=== PATIENT | female | born 1950 | race Caucasian/White ===

== ENCOUNTER 2024-03-01 15:15 | Inpatient (IN) | payer MEDICARE, SELFPAY ==
[2024-03-01 15:46] VITALS: BP 140/63; PULSE 98; RESP 16; TEMP 36.2; O2SAT 95; BMI 30.3
[2024-03-01] MEDS: Pravastatin 40 MG Tablet PO (21:03)
[2024-03-01] MEDS: Aspirin E.C. 81 MG Tablet PO (21:03)
--- NOTE | 2024-03-01 21:51 | HP.PCM_ITS ---
HPI - General General Date of Admission: 03/01/24 Date of Service: 03/01/24 Chief Complaint: Here for rehabilitation. HPI Narrative AIXA GANN, is a 73 Female who presents with followin02/24/2024 Admit to [facility]. Visiting from [place], [place]. Tripped, fell, ground level fall. Fell on right side, no head injury, no loss of consciousness. X-ray showed right hip fracture, right wrist fracture. 02/25/2024 IV fluid hydration for mild acute kidney injury. Pain control, DVT prophylaxis. 02/25/2024 Dr. Enrique Tidwell consulted. 02/25/2024 Dr. Enrique Tidwell performed internal fixation right hip fracture. 02/25/2024 Dr. Enrique Tidwell performed closed reduction right wrist fracture with application of cast. 02/29/2024 Pain improved, hemoglobin 7.8, on iron. D/C hernandez catheter. 03/01/2024 Admit to TCU with debility, here for rehabilitation, strengthening, prior to discharge home. [facility] Medical History (Updated 03/01/24 @ 21:[address] Alberto Landry MD) Hyperlipidemia Acute kidney injury Right wrist fracture Closed right hip fracture Fall Debility Home Medications ?Medication ?Instructions ?Recorded ?Last Taken ?Type acetaminophen 325 mg capsule 650 mg PO Q4H PRN pain (scale 03/01/24 Unknown History score 1-3) aspirin 81 mg tablet,delayed 81 mg PO BID Blood thinner 03/01/24 Unknown History release cyanocobalamin (vitamin B-12) 500 500 mcg PO DAILY Supplement 03/01/24 Unknown History mcg tablet (Vitamin B-12) docusate sodium 100 mg capsule 100 mg PO BID PRN Constipation 03/01/24 Unknown History (Col-Rite) multivitamin (Daily Multi-Vitamin 1 tab PO DAILY Supplement 03/01/24 Unknown History tablet) polysaccharide iron complex 150 mg 150 mg PO DAILY Supplement 03/01/24 Unknown History iron capsule (Ferrex) pravastatin 40 mg tablet 40 mg PO QHS Cholesterol 03/01/24 Unknown History tramadol 50 mg tablet 50 mg PO Q6H Pain 4-10 03/01/24 Unknown History vitamins A,C,K-nuds-ttfuom 2,148 1 tab PO BID Supplement 03/01/24 Unknown History mcg-113 mg-45 mg-17.4 mg tablet (Eye Multivitamin) Allergy/AdvReac Type Severity Reaction Status Date / Time Sulfa (Sulfonamide Allergy Unknown Unknown Verified 03/01/24 16:52 Antibiotics) (sulfa drugs) Surgical History (Updated 03/01/24 @ 21:[address] Alberto Landry MD) History of repair of left hip joint Social History (Updated 03/01/24 @ 21:[address] Alberto Landry MD) household members: spouse and other details: Lives in [place], [place]. Smoking Status: Never smoker alcohol intake: never substance use type: does not use ROS Constitutional Constitutional: Denies chills, fever(s) or weight gain ENT HEENT: Denies headache(s), nasal congestion or nasal discharge Cardiovascular Cardiovascular: Denies chest pain or palpitations Respiratory/Chest Respiratory/Chest: Denies cough, excessive phlegm production or shortness of breath with exertion Gastrointestinal Gastrointestinal: Denies abdominal pain, nausea or vomiting Genitourinary Genitourinary: Denies dysuria Musculoskeletal Musculoskeletal: Denies joint pain or joint swelling Integumentary Integumentary: Denies rash or wounds Neurologic Neurologic: Denies focal weakness, numbness or tingling Psychiatric Psychiatric: Denies anxiety, auditory hallucinations, depression, homicidal ideation or suicidal ideation Vital Signs Vital Signs Vital Signs: 03/01/24 15:46 03/01/24 15:46 Temperature 97.1 F L Temperature Source Temporal Pulse Rate 98 Pulse Rhythm Regular Pulse Strength Normal (2+) Respiratory Rate 16 16 Respiratory Effort Normal Non-Labored Respiratory Depth Normal Respiratory Pattern Normal Blood Pressure 140/63 H Blood Pressure Mean 88 Blood Pressure Source Monitor Pulse Ox 95 95 Oxygen Delivery Method Room Air Room Air Weight Weight: 95.98 kg Body Mass Index (BMI) 30.3 Physical Exam Const alert General Appearance: cooperative HEENT normocephalic Eyes PERRL and EOMs intact bilaterally Neck supple, no JVD and no carotid bruits Resp normal respiratory effort, normal air movement and clear to auscultation bilaterally Cardio regular rate and regular rhythm GI normal to inspection, nondistended, normoactive bowel sounds, non-tender and non-distended Extremity normal capillary refill Extremity Narrative: Right SAC, right upper extremity sling. General Extremity: Negative for edema Skin no rashes or lesions noted General Skin Exam: no breakdown Psych affect normal Appearance: appropriate Assessment & Plan Assessment/Plan (1) Debility: (2) Fall: (3) Closed right hip fracture: (4) Right wrist fracture: (5) Acute kidney injury: (6) Hyperlipidemia: PLAN: Plan 73 year old female with below past medical history hospitalized for right hip fracture, right wrist fracture, underwent internal fixation right hip fracture, closed reduction right wrist fracture 02/25/[address] Enrique Tidwell, admitted to TCU with debility, here for rehabilitation, strengthening, prior to discharge home to [place]. Resident in [place], her sister is in [place]. * Debility - PT/OT. * Pain - Tylenol 1000mg q6 prn pain (1-3), Tramadol 50mg q6 prn pain (4-10). * Bowel - senna/colace 1 tablet bid, Magnesium citrate 300ml po daily prn. * Adult immunization - Administer pneumonia vaccine, covid vaccine, flu vaccine as appropriate. * DVT prophylaxis - Aspirin 81mg bid thru 03/31/2024. * Right hip fracture s/p internal fixation - f/u Dr. Enrique Tidwell. * Right wrist fracture s/p closed reduction with cast - f/u Dr. Enrique Tidwell. * Calcium deficiency - Calcium carbonate 500mg bidcm. * Vitamin B12 deficiency - B12 500mcg daily. * Iron deficiency anemia - Ferrex 150mg daily, monitor. * Macular degeneration - Healthy Eyes 1 cap daily. * Nutrition - MVI 1 tablet daily. * Hyperlipidemia - Pravastatin 40mg qhs.
[2024-03-01] MEDS: traMADol 50 MG Tablet PO (22:40)
[2024-03-02 06:22] LABS: Absolute Lymphocyte Count 0.91 X10^3/uL (0.83-4.51); Absolute Neutrophil Count 2.5 X10^3/uL (2.0-7.7); Basophil# 0.02 X10^3/uL; Basophil% 0.5 % (0-1); Eosinophil# 0.39 X10^3/uL; Eosinophils% 8.9 % (0-5); Hematocrit 22.9 % (37-47); Hemoglobin 7.3 g/dL (12.0-15.0); Lymphocyte # 0.91 X10^3/ul (0.83-4.51); Lymphocyte % 20.8 % (19-41); Mean Corp Hgb Conc 31.9 g/dL (32-36); Mean Corpuscular Hgb 32.4 pg (27.0-32.0); Mean Corpuscular Volume 101.8 fL (81-99); Mean Platelet Vol. 9.5 fl (6.2-12.0); Monocyte# 0.54 X10^3/uL; Monocyte% 12.4 % (0-10); NRBC Flagged by Analyzer 0 % (0-5); Neutrophil % 57.2 % (47-70); Platelet Count 186 K/mm3 (150-450); RBC Distribution Width CV 13.1 % (11.6-14.6); Red Blood Count 2.25 M/mm3 (4.2-5.4); White Blood Count 4.4 K/mm3 (4.4-11.0)
[2024-03-02 07:01] LABS: Anion Gap 4 (5-15); BUN 15 mg/dL (7-18); BUN/Creat Ratio 19.6 RATIO (10-20); Calcium,Total 8.6 mg/dL (8.5-10.1); Chloride 106 mmol/L (98-107); Creatinine, Serum 0.76 mg/dL (0.55-1.02); EST Glomerular Filtration Rate 78 mL/min (>60); Est Glom Filt Rate - Afr Amer 95 mL/min (>60); Estimated Creatinine Clearance 76.25 ml/min; Glucose 100 mg/dL (74-106); Potassium 3.8 mmol/L (3.5-5.1); Sodium Level 139 mmol/L (136-145)
[2024-03-02] MEDS: Multivitamins,Therapeutic Tablet 1 TABLET PO (08:19)
[2024-03-02] MEDS: Aspirin E.C. 81 MG Tablet PO ×2 (08:19→20:05)
[2024-03-02] MEDS: Iron Polysaccharide Complex 150 MG CAPSULE PO (08:19)
[2024-03-02] MEDS: Multivitamin (Healthy Eyes) Capsule 1 CAP PO (08:19)
[2024-03-02] MEDS: Cyanocobalamin 500 MCG Tablet PO (08:20)
[2024-03-02] MEDS: Calcium Carbonate 500 MG Tablet PO ×2 (08:22→17:22)
[2024-03-02] MEDS: Senna/Docusate Sodium 1 Tablet PO ×2 (08:22→20:04)
[2024-03-02] MEDS: traMADol 50 MG Tablet PO ×3 (08:24→21:41)
[2024-03-02 08:29] VITALS: BP 123/50; PULSE 95; O2SAT 99
--- NOTE | 2024-03-02 08:39 | NURSING ---
Called infusion center, spoke with Yeimy, they will schedule resident for tomorrow (03/03/24), at 0730. Updated resident, she said she will update her family.
--- NOTE | 2024-03-02 11:21 | NURSING ---
Addendum entered by Kusum Johnson 03/02/24 12:19: Left VM with Dr. Tidwell's office that xrays done and report in. Original Note: Updated by therapy that cast was coming off of right wrist. Called and updated Rosalie at Dr. Tidwell's. Call back around 1115 with orders to do a stat wrist xray and call with results. Updated patient.
[2024-03-02] MEDS: Tuberculin,Purif.prot.deriv. 50 TU/ML Vial 0.1 ML ID (11:23)
--- NOTE | 2024-03-02 11:40 | RAD_ITS ---
STUDY: X-RAY - RIGHT WRIST REASON FOR EXAM: Female, 73 years old. History of radial fracture. TECHNIQUE: 3 view(s) of the wrist were obtained in a cast. COMPARISON: None. FINDINGS: Comminuted fracture of the distal radial metaphysis with extension to the articular surface. There is a 3 mm step of the articular surface of the radius. Avulsion fracture of the ulnar styloid. Normal radiocarpal articulation. Normal distal radioulnar articulation. Normal carpal bones. Normal carpal articulations. Normal carpometacarpal articulation of the thumb. Normal second through fifth carpometacarpal articulations. Normal visualized metacarpal bones. Soft tissue swelling. RAD/Wrist min 3 Views IMPRESSION: Comminuted fracture of the distal radial metaphysis with extension to the articular surface with a 3 mm step. Avulsion fracture of the ulnar styloid. Diffuse soft tissue swelling. Electronically Signed: Major Hutton MD at 12:13 EDT ,
[2024-03-02 14:54] VITALS: BP 128/56; PULSE 94; RESP 16; TEMP 36.5; O2SAT 95
--- NOTE | 2024-03-02 16:03 | NURSING ---
Addendum entered by Paulo Hope 03/02/24 18:17: PT STATED SHE WOULD UPDATE FAMILY ON EVERY THING. Original Note: ISAK FROM [facility] IN TO SEE PT. ISAK PLACED A SPLIT WITH MICAH WRAP TO RT WRIST. NWB TO WRIST,OK TO PUT WEIGHT ON ELBOW AND WIGGLE FINGERS. SHE ALSO STATED TO FOLLOW UP IN A WEEK WITH . RN AWARE
--- NOTE | 2024-03-02 16:07 | PHA.CONS_ITS ---
Documented by User: Patience Greene 03/02/24 16:17 TCU RX Drug Regimen Review Subjective/Objective Subjective/Objective: Subjective: TCU Admission. 73 YOF presented to outside hospital following a fall. Hospitalized for right hip fracture, right wrist fracture, underwent in ternal fixation right hip fracture, closed reduction right wrist fracture 02/25/[address] Enrique Tidwell. Admitted to TCU with debility for strengthening and rehabilitation. Objective: Allergies Sulfa (Sulfonamide Antibiotics) (sulfa drugs) Allergy (Unknown, Verified 03/01/24 16:52) Unknown Current Medications Generic Name Dose Route Start Last Admin Trade Name Freq PRN Reason Stop Dose Admin Acetaminophen 1,000 mg 03/01/24 22:06 Acetaminophen 500 Mg Tablet PO Q6H PRN PRN pain (scale score 1-3) Aspirin 81 mg 03/01/24 22:00 03/02/24 08:19 Aspirin E.C. 81 Mg Tablet PO 03/31/24 22:01 81 mg BID AG Administration Calcium Carbonate 500 mg 03/02/24 08:00 03/02/24 08:22 Calcium Carbonate 500 Mg Tablet PO 500 mg BIDCM AG Administration Cyanocobalamin 500 mcg 03/02/24 10:00 03/02/24 08:20 Cyanocobalamin 500 Mcg Tablet PO 500 mcg DAILY AG Administration Magnesium Citrate 300 ml 03/01/24 22:06 Magnesium Citrate 300 Ml PO DAILY PRN CONSTIPATION Multivitamins 1 tablet 03/02/24 08:00 03/02/24 08:19 Multivitamins,Therapeutic Tablet PO 1 tablet DAILYCM AG Administration Multivitamins/Minerals 1 cap 03/02/24 10:00 03/02/24 08:19 Multivitamin (Healthy Eyes) Capsule PO 1 cap DAILY AG Administration Polysaccharide Iron Complex 150 mg 03/02/24 10:00 03/02/24 08:19 Iron Polysaccharide Complex 150 Mg Capsule PO 150 mg DAILY AG Administration Pravastatin Sodium 40 mg 03/01/24 22:00 03/01/24 21:03 Pravastatin 40 Mg Tablet PO 40 mg QHS AG Administration Senna/Docusate Sodium 1 tablet 03/02/24 10:00 03/02/24 08:22 Senna/Docusate Sodium 1 Tablet PO 1 tablet BID AG Administration Sodium Chloride 10 - 40 ml 03/01/24 15:58 0.9% Saline Lock 10 Ml Syringe IV UD PRN SALINE FLUSH Tramadol HCl 50 mg 03/01/24 16:49 03/02/24 15:08 Tramadol 50 Mg Tablet PO 50 mg Q6H PRN Administration Pain Score 4-10 Tuberculin PPD 0.1 ml 03/09/24 10:00 Tuberculin,Purif.Prot.Deriv. 50 Tu/Ml Vial ID 03/09/24 10:01 X1 ONE Problem List Hyperlipidemia (Acute) Acute kidney injury (Acute) Right wrist fracture (Acute) Closed right hip fracture (Acute) Fall (Acute) Debility (Acute) Vital Signs Temp Pulse Resp BP Pulse Ox O2 Del Method 97.7 F L 94 16 128/56 H 95 Room Air 03/02/24 14:54 03/02/24 14:54 03/02/24 14:54 03/02/24 14:54 03/02/24 14:54 03/02/24 14:54 Oxygen Delivery Method Room Air Weight: 95.98 kg Body Mass Index (BMI) 30.3 Sodium 139 mmol/L (136-145) 03/02/24 05:44 Potassium 3.8 mmol/L (3.5-5.1) 03/02/24 05:44 Chloride 106 mmol/L (98-107) 03/02/24 05:44 Carbon Dioxide 29.0 mmol/L (21.0-32.0) 03/02/24 05:44 Anion Gap 4 (5-15) L 03/02/24 05:44 BUN 15 mg/dL (7-18) 03/02/24 05:44 Creatinine 0.76 mg/dL (0.55-1.02) 03/02/24 05:44 Est GFR (MDRD) Af Amer 95 mL/min (>60) 03/02/24 05:44 Est GFR (MDRD) Non-Af 78 mL/min (>60) 03/02/24 05:44 BUN/Creatinine Ratio 19.6 RATIO (10-20) 03/02/24 05:44 Glucose 100 mg/dL (74-106) 03/02/24 05:44 Assessment/Plan: 1. Pain: acetaminophen 1000mg PO Q6H PRN pain 1-3 and tramadol 50mg PO Q6H PRN pain 4-10. Resident has not used and acetaminophen but has used 3 doses of tramadol for pain scores of 4 and 6 in the hip/arm/wrist. Please continue to monitor for increased pain, PRN usage, constipation, respiratory depression and renal function. 2. Bowel: senna/docusate 1T PO BID and magnesium citrate 300mL PO daily PRN constipation. Resident has not used any PRN doses. Please continue to monitor for constipation and PRN usage. No documented bowel movements. 3. DVT prophylaxis: aspirin 81mg PO BID thru 03/31/24. Please continue to monitor for S/S of bleeding, hemoglobin (last 7.3g/dL). 4. Hyperlipidemia: pravastatin 40mg PO QHS. Please consider ordering a lipid panel if clinically appropriate as there is no panel in the chart. Thanks. Please continue to monitor for muscle pain. 5. Iron deficiency anemia: Ferrex 150mg PO daily. Please continue to monitor hemoglobin, dark stools and constipation. 6. Calcium/vitamin B12 deficiency: calcium carbonate 500mg PO BIDCM and cyanocobalamin 500mcg PO daily. Please continue to monitor calcium (last 8.6mg/dL). 7. Nutrition/macular degeneration: multivitamin 1T PO daily and healthy eyes 1C PO daily. Please continue to monitor. Assessment/Plan for indications treated with psychotropic medications: None Medical chart and medication regimen reviewed. The following medication irregularities or issues were identified: 1. Pravastatin 40mg PO QHS. Please consider ordering a lipid panel if clinically appropriate as there is no panel in the chart. Thanks. Date Date of Note:: 03/02/24 Documented by User: Dr. Alberto Landry MD 03/02/24 16:56 TCU RX Drug Regimen Review Provider Comments Provider responsibility Provider Comments to Recommendations by Pharmacy: Agree
--- NOTE | 2024-03-02 16:56 | CASEMGMT ---
Social Work Patient is out of state and cannot provide copies of advanced directives. Aura Storey, MOVING PICTURE PRODUCER AUTOMATIC VULCANIZING LEAD OPERATOR
[2024-03-02 20:00] VITALS: PULSE 96; RESP 18; O2SAT 99
[2024-03-02] MEDS: Pravastatin 40 MG Tablet PO (20:05)
[2024-03-03 02:36] LABS: Cholesterol 145 mg/dL (200); High Density Lipoprotein 57 mg/dL; Triglycerides 79 mg/dL; Very Low Density Lipoprotein 16 mg/dL (5-40)
[2024-03-03] MEDS: Calcium Carbonate 500 MG Tablet PO ×2 (06:52→17:35)
[2024-03-03] MEDS: Multivitamins,Therapeutic Tablet 1 TABLET PO (06:52)
--- NOTE | 2024-03-03 07:15 | NURSING ---
Addendum entered by Ishaan Calvin 03/03/24 13:45: Patient returned to unit at 1300. Original Note: Patient left unit at this time for blood transfusion.
--- NOTE | 2024-03-03 08:00 | RAD_ITS ---
INDICATION: f/u fracture -- with splint in place EXAMINATION/TECHNIQUE: X-RAY - RIGHT XR Wrist Min 3 Views 3 VIEWS COMPARISON: Right wrist x-rays 03/02/2024 FINDINGS: BONES: Splint in place. Comminuted fractured distal radius extends to the articular surface, with volar displacement distal fragment by one half bone width. Mild impaction is partially decreased compared to the prior. Fracture of the ulnar styloid process unchanged. JOINTS: No dislocation. SOFT TISSUES: Soft tissue swelling. RAD/Wrist min 3 Views IMPRESSION: Intra-articular distal radius fracture partially improved alignment in cast. Fracture of the ulnar styloid process unchanged. Electronically Signed: Abigail Velarde MD at 5:06 EDT ,
[2024-03-03] MEDS: Iron Polysaccharide Complex 150 MG CAPSULE PO (08:06)
[2024-03-03] MEDS: Senna/Docusate Sodium 1 Tablet PO (08:06)
[2024-03-03] MEDS: Multivitamin (Healthy Eyes) Capsule 1 CAP PO (08:06)
[2024-03-03] MEDS: Aspirin E.C. 81 MG Tablet PO ×2 (08:06→22:03)
[2024-03-03] MEDS: Acetaminophen 500 MG Tablet 1000 MG PO (08:06)
[2024-03-03] MEDS: Cyanocobalamin 500 MCG Tablet PO (08:07)
--- NOTE | 2024-03-03 10:05 | NURSING ---
Underwriting Intern Note; Activity Asset: Igor Garcia is independent in her choice of daily activities. She was her visiting her sister when she fell and is her in [place] and her is in [place]. She has her phone to talk w/family and was given some word puzzle and sudoku to work on. Her plan is to get better as soon as possible so she can make the 3 hour flight back home. She welcomes visits from the business agent and therapy when available. Staff will remind her of weekly activities and respect her right to say no.
--- NOTE | 2024-03-03 10:34 | NURSING ---
Call from [facility] inquiring about xrays that were ordered for 0800. Explained patient over at outpatient infusion center receiving blood transfusion. Per xray, they cannot complete xrays in the outpatient center. Per infusion center, d/t blood being time sensitive patient cannot be transported to xray while receiving blood, however patient was started early this morning patient should be done with transfusion before noon. Per [facility], patient to get xrays CHUCHO when she returns to the unit.
--- NOTE | 2024-03-03 12:29 | NURSING ---
Patient did not receive Lasix 20mg IVP between units while in Transfusion Center. Call placed to Dr. Landry, new order to give Lasix 20mg IVP x1. Verbal order read-back.
[2024-03-03] MEDS: Furosemide 20 MG/2 ML VIAL IV (13:28)
[2024-03-03 13:30] VITALS: BP 140/70; PULSE 83; RESP 16; TEMP 36.8; O2SAT 96
[2024-03-03] MEDS: 0.9% Saline Lock 10 ML Syringe IV (13:30)
--- NOTE | 2024-03-03 15:49 | NURSING ---
Order placed for 24hr post transfusion H&H, 03/04/24 @1400, as ordered by Dr. Landry.
--- NOTE | 2024-03-03 15:59 | CHAPLAIN ---
Type of Pastoral Visit _x__ Initial Visit ___ Follow-up Visit ___ On-call Visit ___ General Patient Visit ___ Spiritual Assessment ___ Family Conference ___ Bereavement ___ Rapid Response ___ Code Blue ___ Other (describe below) Pastoral Care Referral From _x__ Patient ___ Family ___ Nurse ___ Physician ___ [id number] Programmer ___ Cutter Helper ___ Other (describe below) Sacrament/Intervention _x__ Active listening ___ Anointing ___ Adventism ___ Bereavement ___ Communion ___ Sofia exploration ___ _x__ Life review _x__ Prayer ___ Reconciliation ___ Sacrament of Sick _x__ Supportive presence ___ Wedding ___ Other (describe below) Pastoral Comments patient tells her story of being a visitor to [place] from [place] and having a fall that led to this stay in TCU; pt is away from her family and sad about that; pt is tearful as she talks about the separation; pt is affirmed and given time to express her feelings and talk more about her life and interests; pt is hopeful that her sister will be able to visit her tomorrow; pt had a blood transfusion this morning and she is hopeful that will help her energy level too; pt is of the [employer] sofia and requests communion to be given; a call was made to registration to include this patient on the [employer] list for communion; pt request prayer support and states that she is grateful for the visit and attention to her needs and wants
[2024-03-03] MEDS: Pravastatin 40 MG Tablet PO (22:03)
[2024-03-03] MEDS: traMADol 50 MG Tablet PO (22:04)
[2024-03-03 23:00] VITALS: RESP 16
[2024-03-04] MEDS: Calcium Carbonate 500 MG Tablet PO ×2 (09:04→16:57)
[2024-03-04] MEDS: Multivitamins,Therapeutic Tablet 1 TABLET PO (09:04)
[2024-03-04] MEDS: traMADol 50 MG Tablet PO ×3 (09:04→22:01)
[2024-03-04] MEDS: Cyanocobalamin 500 MCG Tablet PO (09:05)
[2024-03-04] MEDS: Iron Polysaccharide Complex 150 MG CAPSULE PO (09:05)
[2024-03-04] MEDS: Aspirin E.C. 81 MG Tablet PO ×2 (09:05→20:05)
[2024-03-04] MEDS: Multivitamin (Healthy Eyes) Capsule 1 CAP PO (09:05)
[2024-03-04 12:38] VITALS: BP 123/51; PULSE 77; RESP 16; TEMP 36.6; O2SAT 98
[2024-03-04 13:41] LABS: Hematocrit 32.7 % (37-47); Hemoglobin 10.4 g/dL (12.0-15.0)
--- NOTE | 2024-03-04 13:44 | CASEMGMT ---
Social Work SW met with patient to complete initial assessment. Introduced self and role. Verified contacts. Pt confirmed code status as full code. SW educated to [facility] insurance with NRD 03/14, EDC 03/17. SW answered pt's questions on assisting returning home to [place]. Pt has f/u appt with ortho on 03/10. Pt plans to [place] the week of the pending that appt. Her sister or will fly with pt and transport to the airport. However, if not, pt inquired about local transportation. SW educated to coordinating [facility] but it is an OOP cost. Pt expressed understanding. Pt is using a right platform FWW and inquired about that at DC. SW to inquire details to [facility] since [place] is out of state. SW educated to PCP coordinating referral to local ortho and HHC or OP therapy and other DME needs. Pt to call PCP office on following business day to notify of situation and begin process for ortho consult. SW will continue to follow for DC planning and support. Aura Storey, RADHA HARRINGTONW
[2024-03-04] MEDS: Hydrocortisone 2.5% Crm 1 APPLIC TOPICAL ×2 (14:44→20:05)
[2024-03-04] MEDS: Pravastatin 40 MG Tablet PO (20:05)
[2024-03-04 22:00] VITALS: PULSE 93; RESP 16; O2SAT 96
[2024-03-05] MEDS: Calcium Carbonate 500 MG Tablet PO ×2 (08:40→17:07)
[2024-03-05] MEDS: Aspirin E.C. 81 MG Tablet PO ×2 (08:42→22:02)
[2024-03-05] MEDS: Multivitamins,Therapeutic Tablet 1 TABLET PO ×2 (08:42→08:44)
[2024-03-05] MEDS: Iron Polysaccharide Complex 150 MG CAPSULE PO (08:42)
[2024-03-05] MEDS: Multivitamin (Healthy Eyes) Capsule 1 CAP PO (08:42)
[2024-03-05] MEDS: Cyanocobalamin 500 MCG Tablet PO (08:43)
[2024-03-05 08:48] VITALS: BP 116/50; PULSE 93; O2SAT 96
[2024-03-05] MEDS: Hydrocortisone 2.5% Crm 1 APPLIC TOPICAL ×2 (11:04→22:02)
[2024-03-05 11:05] VITALS: PULSE 69; RESP 18; O2SAT 97
[2024-03-05] MEDS: traMADol 50 MG Tablet PO (12:54)
[2024-03-05 16:00] VITALS: BP 135/63; PULSE 78; RESP 14; TEMP 36.4; O2SAT 100
[2024-03-05] MEDS: Pravastatin 40 MG Tablet PO (22:02)
[2024-03-06] MEDS: Hydrocortisone 2.5% Crm 1 APPLIC TOPICAL (08:37)
[2024-03-06] MEDS: Calcium Carbonate 500 MG Tablet PO ×2 (08:38→16:47)
[2024-03-06] MEDS: Aspirin E.C. 81 MG Tablet PO ×2 (08:39→22:20)
[2024-03-06] MEDS: Iron Polysaccharide Complex 150 MG CAPSULE PO (08:39)
[2024-03-06] MEDS: Cyanocobalamin 500 MCG Tablet PO (08:40)
[2024-03-06] MEDS: Multivitamin (Healthy Eyes) Capsule 1 CAP PO (08:40)
[2024-03-06] MEDS: Acetaminophen 500 MG Tablet 1000 MG PO ×2 (08:42→22:24)
[2024-03-06 08:47] VITALS: BP 116/47; PULSE 92; O2SAT 99
[2024-03-06 13:30] VITALS: PULSE 77; RESP 18; O2SAT 98
[2024-03-06 16:00] VITALS: BP 143/50; PULSE 85; RESP 16; TEMP 36.6; O2SAT 99
[2024-03-06] MEDS: Pravastatin 40 MG Tablet PO (22:20)
[2024-03-07] MEDS: traMADol 50 MG Tablet PO (09:21)
[2024-03-07] MEDS: Multivitamins,Therapeutic Tablet 1 TABLET PO (09:22)
[2024-03-07] MEDS: Calcium Carbonate 500 MG Tablet PO ×2 (09:23→17:07)
[2024-03-07] MEDS: Cyanocobalamin 500 MCG Tablet PO (09:23)
[2024-03-07] MEDS: Iron Polysaccharide Complex 150 MG CAPSULE PO (09:23)
[2024-03-07] MEDS: Multivitamin (Healthy Eyes) Capsule 1 CAP PO (09:23)
[2024-03-07] MEDS: Aspirin E.C. 81 MG Tablet PO ×2 (09:23→20:53)
[2024-03-07] MEDS: Hydrocortisone 2.5% Crm 1 APPLIC TOPICAL ×2 (09:25→17:07)
[2024-03-07 13:51] VITALS: BP 158/61; PULSE 77; RESP 18; TEMP 36.1; O2SAT 98
--- NOTE | 2024-03-07 15:12 | PCM.PN.ORT ---
Subjective Subjective Patient is status post right hip intramedullary nailing approximately 10 days ago. Also underwent closed reduction of her wrist fracture. She states she is having no significant wrist or hand pain. Mild swelling. She has been having mild hip pain after therapy. She is planning on returning home in about 10 days. She lives out of state. Denies numbness or tingling of the fingers. Objective Data Objective Data Right upper extremity is in a AP splint short arm. She had no significant pain at the shoulder elbow. She can gently wiggle the fingers. Capillary refill is normal. Sensation is normal. Hand is neurovascular intact. She has mild hip flexion pain at 90 degrees. Mild hip pain with rotation. No pain with gentle axial loading the hip. No calf pain or swelling. Negative Homans' sign. Legs are neurovascular intact. X-rays of the right wrist from March 02 and March 03 reviewed showing a displaced comminuted impacted intra-articular distal radius fracture with associated ulnar styloid fracture. Images explained to patient. Vital Signs: Vital Signs Temp Pulse Resp BP Pulse Ox O2 Del Method 97.0 F L 77 18 158/61 H 98 Room Air 03/07/24 13:51 03/07/24 13:51 03/07/24 13:51 03/07/24 13:51 03/07/24 13:51 03/07/24 13:51 Oxygen Delivery Method Room Air Weight: 95.98 kg Body Mass Index (BMI) 30.3 Intake & Output: Intake and Output for Last 24 Hours 03/05/24 03/06/24 03/07/24 23:59 23:59 23:59 Intake Total 460 / 460 440 / 440 240 / 240 Balance 460 / 460 440 / 440 240 / 240 Lab / Micro Data 03/04/24 13:32 03/02/24 05:44 Assessment & Plan Assessment/Plan (1) History of repair of left hip joint: PLAN: Plan Her diagnosis and treatment options regarding her right distal radius fracture and right hip fracture discussed with her at length. She is to be weightbearing as tolerated on the right hip. She should avoid weightbearing across her right wrist. Surgical and nonsurgical options for the wrist again discussed at length. I explained based on her age and activity level, despite her fracture being impacted and somewhat out of alignment, I do not think that surgical intervention would give her a significant increased outcome as far as pain relief or use compared to allowing it to heal in this position. I explained that would require another anesthetic for open reduction internal fixation. I do not think further closed reduction and immobilization would give her a better chance of the fracture healing in a significantly better position. She has already been through 2 anesthetics for this injury. She would like to avoid surgery if possible. I explained her orthopedic surgeon at home may further discuss surgical intervention especially if she were to develop a painful nonunion or malunion. We will plan to have repeat set of x-rays this of the wrist and hip. I will review those from my office. She can get the sindhu taken out of her hip surgery site this . We can see her in the office if needed. Otherwise she will be discharged to home possibly as scheduled on April 16 per report.
--- NOTE | 2024-03-07 17:22 | NURSING ---
Dr. Tidwell in to see patient today. Progress note states she does not need to be seen in the office on 03/10 if we can remove sindhu and get x-rays. Call Dr. Tidwell office to get orders for x-rays. Order placed to remove sindhu on 03/10.
--- NOTE | 2024-03-07 18:36 | NURSING ---
[facility] for x-rays and stable removal for 03/07/24. Orders placed.
[2024-03-07] MEDS: Acetaminophen 500 MG Tablet 1000 MG PO (20:53)
[2024-03-07] MEDS: Pravastatin 40 MG Tablet PO (20:53)
[2024-03-08] MEDS: Calcium Carbonate 500 MG Tablet PO ×2 (07:55→16:44)
[2024-03-08] MEDS: Cyanocobalamin 500 MCG Tablet PO (07:55)
[2024-03-08] MEDS: Multivitamin (Healthy Eyes) Capsule 1 CAP PO (07:55)
[2024-03-08] MEDS: Iron Polysaccharide Complex 150 MG CAPSULE PO (07:56)
[2024-03-08] MEDS: Multivitamins,Therapeutic Tablet 1 TABLET PO (07:57)
[2024-03-08] MEDS: Aspirin E.C. 81 MG Tablet PO ×2 (07:57→20:44)
[2024-03-08 08:00] VITALS: BP 150/64; PULSE 83; O2SAT 99
[2024-03-08] MEDS: traMADol 50 MG Tablet PO (08:49)
[2024-03-08 13:33] VITALS: BP 143/54; PULSE 85; RESP 16; TEMP 36.4; O2SAT 98
--- NOTE | 2024-03-08 13:42 | CASEMGMT ---
Social Work SW conducted BIMS () and PHQ-2 () completed for MDS assessment. Pt became tearful and acknowledged feeling homesick. SW validated feelings and acknowledged the difficulties being out of state and with strangers. SW segued to DC plans as Dr. Tidwell saw pt yesterday and gave orders for remaining stay. Pt stated she has coordinated her with her sister and BECKI for DC 03/17; has a flight booked, and will practice a car tx with PT on 03/16. SW updated pt that [employer] and deliver right platform walker for DC and bill insurance. Pt appreciative. Pt has spoken to PCP office to get f/u appt and ortho consult. SW updated PT, [employer] and rest of IDT of DC date. Plan: DC home to [place] 03/17, right platform ROSELYN Storey OPERATOR PREFINISH SLOT FLOOR PERSON
[2024-03-08 13:54] VITALS: BMI 30.7
--- NOTE | 2024-03-08 20:16 | DS.PCM_ITS ---
Providers Date of Admission: 03/01/24 Primary Care Physician: FLORIAN GALLEGO Reason For Visit: L HIP FX/FALL Diagnosis Discharge Diagnosis (1) History of repair of left hip joint: Status: Acute Code(s): Z98.890 - Other specified postprocedural states Plan 73 year old female with below past medical history hospitalized for right hip fracture, right wrist fracture, underwent internal fixation right hip fracture, closed reduction right wrist fracture 02/25/[address] Enrique Tidwell, admitted to TCU with debility, here for rehabilitation, strengthening, prior to discharge home to [place]. Resident in [place], her sister is in [place]. * Debility - PT/OT. * Pain - Tylenol 1000mg q6 prn pain (1-3), Tramadol 50mg q6 prn pain (4-10). * Bowel - senna/colace 1 tablet bid, Magnesium citrate 300ml po daily prn. * Adult immunization - Administer pneumonia vaccine, covid vaccine, flu vaccine as appropriate. * DVT prophylaxis - Aspirin 81mg bid thru 03/31/2024. * Right hip fracture s/p internal fixation - f/u Dr. Enrique Tidwell. * Right wrist fracture s/p closed reduction with cast - f/u Dr. Enrique Tidwell. * Calcium deficiency - Calcium carbonate 500mg bidcm. * Vitamin B12 deficiency - B12 500mcg daily. * Iron deficiency anemia - Ferrex 150mg daily, monitor. * Macular degeneration - Healthy Eyes 1 cap daily. * Nutrition - MVI 1 tablet daily. * Hyperlipidemia - Pravastatin 40mg qhs. Medications at Discharge Home Medications cyanocobalamin (vitamin B-12) 500 mcg tablet (Vitamin B-12) 500 mcg PO DAILY Supplement 03/01/24 multivitamin (Daily Multi-Vitamin tablet) 1 tab PO DAILY Supplement 03/01/24 pravastatin 40 mg tablet 40 mg PO QHS Cholesterol 03/01/24 vitamins A,C,A-pjqv-nidnfs 2,148 mcg-113 mg-45 mg-17.4 mg tablet (Eye Multivitamin) 1 tab PO BID Supplement 03/01/24 acetaminophen 500 mg tablet 1,000 mg (2 x 500 mg) PO Q6H PRN PRN pain (scale score 1-3) #0 tabs 03/08/24 aspirin 81 mg tablet,delayed release 81 mg PO BID 15 days #0 tabs 03/08/24 calcium carbonate 500 mg (2.5 x 200 mg calcium (500 mg)) PO BIDCM #0 tabs 03/08/24 polysaccharide iron complex 150 mg iron capsule (Ferrex) 150 mg PO DAILY 30 days #30 caps 03/08/24 sennosides 8.6 mg-docusate sodium 50 mg tablet (Stimulant Laxative Plus) 1 tab PO BID 30 days #60 tabs 03/08/24 tramadol 50 mg tablet 50 mg PO Q6H PRN Pain Score 4-10 7 days #28 tabs 03/08/24 Hospital Course Operations - (See below.) Procedures None Summary of Care Provided Minutes Spent on Discharge: 35 Hospital Course: 73 year old female with below past medical history hospitalized for right hip fracture, right wrist fracture, underwent internal fixation right hip fracture, closed reduction right wrist fracture 02/25/[address] Enrique Tidwell, admitted to TCU with debility, here for rehabilitation, strengthening, prior to discharge home to [place]. Resident in [place], her sister is in [place]. 03/07/2024 Dr. Enrique Tidwell saw resident: Her diagnosis and treatment options regarding her right distal radius fracture and right hip fracture discussed with her at length. She is to be weightbearing as tolerated on the right hip. She should avoid weightbearing across her right wrist. Surgical and nonsurgical options for the wrist again discussed at length. I explained based on her age and activity level, despite her fracture being impacted and somewhat out of alignment, I do not think that surgical intervention would give her a significant increased outcome as far as pain relief or use compared to allowing it to heal in this position. I explained that would require another anesthetic for open reduction internal fixation. I do not think further closed reduction and immobilization would give her a better chance of the fracture healing in a significantly better position. She has already been through 2 anesthetics for this injury. She would like to avoid surgery if possible. I explained her orthopedic surgeon at home may further discuss surgical intervention especially if she were to develop a painful nonunion or malunion. We will plan to have repeat set of x-rays this of the wrist and hip. I will review those from my office. She can get the sindhu taken out of her hip surgery site this . We can see her in the office if needed. Otherwise she will be discharged to home possibly as scheduled on April 16 per report. Resident sister coming fro [place] to assist resident in flying home to [place]. Discharge home to [place] 03/17/2024, right platform FWW. Right platform FWW: Patient unsafe to use a cane and requires a walker for ambulation, she is also restricted to use of one hand. Physical Exam Const alert General Appearance: cooperative HEENT normocephalic Eyes PERRL and EOMs intact bilaterally Neck supple, no JVD and no carotid bruits Resp normal respiratory effort, normal air movement and clear to auscultation bilaterally Cardio regular rate and regular rhythm GI normal to inspection, nondistended, normoactive bowel sounds, non-tender and non-distended Extremity normal capillary refill Extremity Narrative: Right SAC, right upper extremity sling. General Extremity: Negative for edema Skin no rashes or lesions noted General Skin Exam: no breakdown Psych affect normal Appearance: appropriate Weight / BMI Weight Weight: 97.159 kg Body Mass Index (BMI) 30.7 ABG / Lab / Microbiology Data 03/04/24 13:32 03/02/24 05:44 D/C Instructions Discharge Diet: No restrictions Discharge Activity: Return to Normal Activity, May Shower and Use Walker Weight Bearing Status: No weight bearing (Right upper extremity. ) Call your doctor if you observe: Fever of 101 or Higher, Inability to urinate, Inability to have a bowel movement, Shortness of breath, Dizziness, Fainting spells, Swelling in the ankles, Chest pain and Uncontrolled pain Additional Instructions: Discharge home to [place] 03/17/2024, right platform FWW. Right platform FWW: Patient unsafe to use a cane and requires a walker for ambulation, she is also restricted to use of one hand. Please Follow Up With: [facility] Meaningful Use Info Meaningful Use Meaningful Use Diagnoses (Choose all that apply): None applicable Ischemic Stroke Statin Dosing Therapy Reference: STATIN DOSE THERAPY REFERENCE: * Patients > 75 years receive moderate or high dose statin therapy. * Patients 75 years or YOUNGER should receive HIGH intensity statin dose unless contraindicated. You will be required to document reason for non-treatment if statin daily dose does not meet guidelines. HIGH DOSE STATIN THERAPY DAILY Atorvastatin > than or = to 40 mg Rosuvastatin > than or = to 20 mg Amlodipine + Atorvastatin > than or = to 2.5/40 mg Ezetimibe + Simvastatin 10/80 mg Simvastatin 80mg Discharge Plan Admission Admit Date/Time: 03/01/24 15:15 Primary Reason for Your Visit: Debility. Attending Provider: Alberto Landry Chi Primary Care Provider: FLORIAN GALLEGO Instructions Additional Instructions / Restrictions: Discharge home to [place] 03/17/2024, right platform FWW. Right platform FWW: Patient unsafe to use a cane and requires a walker for ambulation, she is also restricted to use of one hand. Discharge Orders/Prescriptions Prescriptions: New acetaminophen 500 mg Tablet 1,000 mg PO Q6H PRN PRN (Reason: pain (scale score 1-3)) Qty: 0 0RF aspirin 81 mg Tablet,Delayed Release (Dr/Ec) 81 mg PO BID 15 Days Qty: 0 0RF calcium carbonate 200 mg calcium (500 mg) Tablet,Chewable 500 mg PO BIDCM Qty: 0 0RF polysaccharide iron complex [Ferrex 150] 150 mg iron Capsule 150 mg PO DAILY 30 Days Qty: 30 0RF sennosides-docusate sodium [Stimulant Laxative Plus] 8.6-50 mg Tablet 1 tab PO BID 30 Days Qty: 60 0RF tramadol 50 mg Tablet 50 mg PO Q6H PRN (Reason: Pain Score 4-10) 7 Days Qty: 28 0RF Continued multivitamin [Daily Multi-Vitamin] Tablet 1 tab PO DAILY pravastatin 40 mg tablet 40 mg PO QHS Eye Multivitamin 2,148 mcg-113 mg-45 mg-17.4mg tablet 1 tab PO BID Rx Instructions: administer with AM and PM meals cyanocobalamin (vitamin B-12) [Vitamin B-12] 500 mcg tablet 500 mcg PO DAILY Discontinued acetaminophen 325 mg capsule 650 mg PO Q4H PRN (Reason: pain (scale score 1-3)) aspirin 81 mg tablet,delayed release (DR/EC) 81 mg PO BID docusate sodium [Col-Rite] 100 mg capsule 100 mg PO BID PRN (Reason: Constipation) polysaccharide iron complex [Ferrex 150] 150 mg iron capsule 150 mg PO DAILY tramadol 50 mg tablet 50 mg PO Q6H Referrals / Follow Up: FLORIAN GALLEGO [Other] Disposition Disposition (needs filled in before D/C Order can be placed): Home, Self Care
[2024-03-08 20:23] VITALS: PULSE 88; RESP 16; O2SAT 98
[2024-03-08] MEDS: Hydrocortisone 2.5% Crm 1 APPLIC TOPICAL (20:44)
[2024-03-08] MEDS: Pravastatin 40 MG Tablet PO (20:44)
[2024-03-09] MEDS: Acetaminophen 500 MG Tablet 1000 MG PO (00:46)
[2024-03-09 06:09] LABS: Absolute Lymphocyte Count 0.97 X10^3/uL (0.83-4.51); Absolute Neutrophil Count 3.4 X10^3/uL (2.0-7.7); Basophil# 0.03 X10^3/uL; Basophil% 0.6 % (0-1); Eosinophil# 0.25 X10^3/uL; Eosinophils% 4.8 % (0-5); Hematocrit 31.5 % (37-47); Hemoglobin 9.7 g/dL (12.0-15.0); Lymphocyte # 0.97 X10^3/ul (0.83-4.51); Lymphocyte % 18.7 % (19-41); Mean Corp Hgb Conc 30.8 g/dL (32-36); Mean Corpuscular Hgb 30.1 pg (27.0-32.0); Mean Corpuscular Volume 97.8 fL (81-99); Mean Platelet Vol. 9.5 fl (6.2-12.0); Monocyte% 9.6 % (0-10); NRBC Flagged by Analyzer 0 % (0-5); Neutrophil # 3.43 X10^3/uL (2.7-7.7); Neutrophil % 66.1 % (47-70); Platelet Count 244 K/mm3 (150-450); RBC Distribution Width CV 15.6 % (11.6-14.6); RBC Distribution Width SD 55.9 fl (35.1-43.9); Red Blood Count 3.22 M/mm3 (4.2-5.4); White Blood Count 5.2 K/mm3 (4.4-11.0)
[2024-03-09 06:47] LABS: Anion Gap 4 (5-15); BUN 22 mg/dL (7-18); BUN/Creat Ratio 24.2 RATIO (10-20); Calcium,Total 9.3 mg/dL (8.5-10.1); Chloride 109 mmol/L (98-107); Creatinine, Serum 0.91 mg/dL (0.55-1.02); EST Glomerular Filtration Rate 64 mL/min (>60); Est Glom Filt Rate - Afr Amer 78 mL/min (>60); Estimated Creatinine Clearance 67.43 ml/min; Glucose 102 mg/dL (74-106); Potassium 4.2 mmol/L (3.5-5.1); Sodium Level 141 mmol/L (136-145)
[2024-03-09] MEDS: Calcium Carbonate 500 MG Tablet PO ×2 (07:53→18:21)
[2024-03-09] MEDS: Aspirin E.C. 81 MG Tablet PO ×2 (07:53→21:38)
[2024-03-09] MEDS: Multivitamins,Therapeutic Tablet 1 TABLET PO (07:53)
[2024-03-09] MEDS: Iron Polysaccharide Complex 150 MG CAPSULE PO (07:53)
[2024-03-09] MEDS: Multivitamin (Healthy Eyes) Capsule 1 CAP PO (07:53)
[2024-03-09] MEDS: Senna/Docusate Sodium 1 Tablet PO (07:53)
[2024-03-09] MEDS: Cyanocobalamin 500 MCG Tablet PO (07:54)
--- NOTE | 2024-03-09 08:48 | NURSING ---
Custodial Engineer Note; MDS for 03/08/2024 Complete
--- NOTE | 2024-03-09 11:14 | CASEMGMT ---
Social Work IDT met with pt and conference call with and sister for care plan meeting. Discussed patient's progress in PT/OT/SN. Educated to [facility] insurance with [employer] 03/14, DC 03/17. Confirmed DC plans and SW updated [employer] for platform. Reiterated for pt to coordinate with her PCP for order for ongoing therapy and nursing needs. Pt has contacted her PCPs office. Answered other questions. SW will continue to follow if other needs arise. Aura Storey, TECHNOLOGY PROGRAM MANAGER CARDIOVASCULAR DISEASE SPECIALIST
[2024-03-09] MEDS: Tuberculin,Purif.prot.deriv. 50 TU/ML Vial 0.1 ML ID (12:30)
[2024-03-09] MEDS: traMADol 50 MG Tablet PO (12:31)
[2024-03-09 14:28] VITALS: BP 141/70; PULSE 88; RESP 14; TEMP 36.6; O2SAT 99
[2024-03-09] MEDS: Pravastatin 40 MG Tablet PO (21:39)
[2024-03-10] MEDS: traMADol 50 MG Tablet PO (08:54)
[2024-03-10] MEDS: Multivitamins,Therapeutic Tablet 1 TABLET PO (08:55)
[2024-03-10] MEDS: Iron Polysaccharide Complex 150 MG CAPSULE PO (08:55)
[2024-03-10] MEDS: Multivitamin (Healthy Eyes) Capsule 1 CAP PO (08:55)
[2024-03-10] MEDS: Calcium Carbonate 500 MG Tablet PO ×2 (08:55→17:55)
[2024-03-10] MEDS: Cyanocobalamin 500 MCG Tablet PO (08:55)
[2024-03-10] MEDS: Aspirin E.C. 81 MG Tablet PO ×2 (08:56→21:40)
--- NOTE | 2024-03-10 10:00 | RAD_ITS ---
STUDY: X-RAY - RIGHT WRIST REASON FOR EXAM: Female, 73 years old. F/U on closed reduction fx. TECHNIQUE: 2 view(s) of the wrist were obtained. COMPARISON: Comparison is made with prior study dated March 03, 2024. FINDINGS: Healing, fracture of the distal radial metaphysis with the minimal articular depression at the fracture site. Anatomical alignment is maintained. Normal radiocarpal articulation. Normal distal radioulnar articulation. Normal carpal bones. Normal carpal articulations. Normal carpometacarpal articulation of the thumb. Normal second through fifth carpometacarpal articulations. Normal visualized metacarpal bones. Soft tissue swelling. RAD/Wrist 2 Views IMPRESSION: Healing comminuted fracture of the distal radial metaphysis as described. The position is unchanged. Electronically Signed: Major Hutton MD at 15:13 EDT ,
--- NOTE | 2024-03-10 10:00 | RAD_ITS ---
STUDY: X-RAY - PELVIS AND RIGHT HIP REASON FOR EXAM: Female, 73 years old. Post-op f/u. TECHNIQUE: 3 views of the pelvis and hip. COMPARISON: None. FINDINGS: Moderate amount of fecal material is seen in the colon. Normal visualized soft tissue structures. There is narrowing with cortical sclerosis and osteophyte formation of the sacroiliac joint consistent with degenerative osteoarthritic changes. Findings suggestive of healed left inferior pubic ramus fracture. There is narrowing with sclerosis of the pubic symphysis. Normal bilateral ischial tuberosities. The patient is status post intramedullary tank extends compressive screw fixation of the right intertrochanteric fracture. There is good alignment. Status post left total hip replacement. RAD/HIP, UNI W/ Pelvis 2-3 Views IMPRESSION: Satisfactory ORIF of the right intertrochanteric fracture. Electronically Signed: Major Hutton MD at 15:15 EDT ,
[2024-03-10 16:00] VITALS: BP 132/78; PULSE 88; RESP 14; TEMP 36.6; O2SAT 97
[2024-03-10] MEDS: Pravastatin 40 MG Tablet PO (21:40)
[2024-03-10 22:00] VITALS: PULSE 98; RESP 18; O2SAT 98
[2024-03-11] MEDS: Acetaminophen 500 MG Tablet 1000 MG PO (02:07)
[2024-03-11] MEDS: Calcium Carbonate 500 MG Tablet PO ×2 (07:49→16:18)
[2024-03-11] MEDS: traMADol 50 MG Tablet PO (07:49)
[2024-03-11] MEDS: Cyanocobalamin 500 MCG Tablet PO (07:50)
[2024-03-11] MEDS: Iron Polysaccharide Complex 150 MG CAPSULE PO (07:50)
[2024-03-11] MEDS: Aspirin E.C. 81 MG Tablet PO ×2 (07:50→21:15)
[2024-03-11] MEDS: Multivitamin (Healthy Eyes) Capsule 1 CAP PO (07:50)
[2024-03-11] MEDS: Multivitamins,Therapeutic Tablet 1 TABLET PO (10:15)
[2024-03-11 16:00] VITALS: BP 147/61; PULSE 89; RESP 16; TEMP 36.6; O2SAT 100
[2024-03-11] MEDS: Pravastatin 40 MG Tablet PO (21:15)
[2024-03-11 21:20] VITALS: RESP 16
[2024-03-12] MEDS: Cyanocobalamin 500 MCG Tablet PO (08:21)
[2024-03-12] MEDS: Aspirin E.C. 81 MG Tablet PO ×2 (08:21→22:43)
[2024-03-12] MEDS: Calcium Carbonate 500 MG Tablet PO ×2 (08:21→16:37)
[2024-03-12] MEDS: Iron Polysaccharide Complex 150 MG CAPSULE PO (08:22)
[2024-03-12] MEDS: Multivitamin (Healthy Eyes) Capsule 1 CAP PO (08:22)
[2024-03-12] MEDS: Multivitamins,Therapeutic Tablet 1 TABLET PO (08:22)
[2024-03-12 08:24] VITALS: BP 136/62; PULSE 85; RESP 14; TEMP 36.1; O2SAT 99
[2024-03-12] MEDS: traMADol 50 MG Tablet PO (09:25)
[2024-03-12 15:30] VITALS: BP 139/55; PULSE 75; RESP 16; TEMP 36.7; O2SAT 99
[2024-03-12] MEDS: Pravastatin 40 MG Tablet PO (22:43)
[2024-03-13 08:42] VITALS: BP 136/53; PULSE 78; RESP 14; TEMP 36.4; O2SAT 98
[2024-03-13] MEDS: Iron Polysaccharide Complex 150 MG CAPSULE PO (08:56)
[2024-03-13] MEDS: Calcium Carbonate 500 MG Tablet PO ×2 (08:57→17:32)
[2024-03-13] MEDS: Cyanocobalamin 500 MCG Tablet PO (08:57)
[2024-03-13] MEDS: Multivitamin (Healthy Eyes) Capsule 1 CAP PO (08:57)
[2024-03-13] MEDS: Aspirin E.C. 81 MG Tablet PO ×2 (08:57→20:13)
[2024-03-13] MEDS: Multivitamins,Therapeutic Tablet 1 TABLET PO (08:57)
[2024-03-13 20:00] VITALS: PULSE 100; RESP 18; O2SAT 99
[2024-03-13] MEDS: Pravastatin 40 MG Tablet PO (20:13)
[2024-03-14 08:33] VITALS: BP 137/57; PULSE 80; RESP 16; TEMP 36.7; O2SAT 98
[2024-03-14] MEDS: Multivitamins,Therapeutic Tablet 1 TABLET PO (08:36)
[2024-03-14] MEDS: Calcium Carbonate 500 MG Tablet PO ×2 (08:36→16:40)
[2024-03-14] MEDS: Aspirin E.C. 81 MG Tablet PO ×2 (08:36→22:35)
[2024-03-14] MEDS: Iron Polysaccharide Complex 150 MG CAPSULE PO (08:37)
[2024-03-14] MEDS: Cyanocobalamin 500 MCG Tablet PO (08:37)
[2024-03-14] MEDS: Multivitamin (Healthy Eyes) Capsule 1 CAP PO (08:37)
[2024-03-14] MEDS: traMADol 50 MG Tablet PO (09:06)
--- NOTE | 2024-03-14 09:23 | MDS.RN ---
Information for the MDS was obtained from review of the clinical record, interview of resident, staff, and direct observation of resident?s care.
[2024-03-14] MEDS: Pravastatin 40 MG Tablet PO (22:35)
[2024-03-15] MEDS: Acetaminophen 500 MG Tablet 1000 MG PO (02:04)
[2024-03-15] MEDS: Aspirin E.C. 81 MG Tablet PO ×2 (08:26→22:33)
[2024-03-15] MEDS: Calcium Carbonate 500 MG Tablet PO ×2 (08:26→17:31)
[2024-03-15] MEDS: Multivitamins,Therapeutic Tablet 1 TABLET PO (08:26)
[2024-03-15] MEDS: Senna/Docusate Sodium 1 Tablet PO (08:27)
[2024-03-15] MEDS: Iron Polysaccharide Complex 150 MG CAPSULE PO (08:27)
[2024-03-15] MEDS: Cyanocobalamin 500 MCG Tablet PO (08:27)
[2024-03-15] MEDS: Multivitamin (Healthy Eyes) Capsule 1 CAP PO (08:27)
[2024-03-15 09:38] VITALS: BMI 29.7
--- NOTE | 2024-03-15 12:55 | NURSING ---
Offered covid vaccine, VIS provided. Resident refuses.
[2024-03-15 13:21] VITALS: BP 152/62; PULSE 91; RESP 18; TEMP 36.2; O2SAT 99
[2024-03-15] MEDS: Pravastatin 40 MG Tablet PO (22:33)
[2024-03-15 22:35] VITALS: RESP 15
[2024-03-16] MEDS: Acetaminophen 500 MG Tablet 1000 MG PO (03:52)
[2024-03-16 06:00] LABS: Absolute Lymphocyte Count 0.96 X10^3/uL (0.83-4.51); Absolute Neutrophil Count 2.6 X10^3/uL (2.0-7.7); Basophil# 0.02 X10^3/uL; Basophil% 0.5 % (0-1); Eosinophil# 0.25 X10^3/uL; Eosinophils% 5.9 % (0-5); Hematocrit 31.6 % (37-47); Hemoglobin 9.8 g/dL (12.0-15.0); Lymphocyte # 0.96 X10^3/ul (0.83-4.51); Lymphocyte % 22.5 % (19-41); Mean Corpuscular Hgb 30.2 pg (27.0-32.0); Mean Corpuscular Volume 97.2 fL (81-99); Mean Platelet Vol. 9.9 fl (6.2-12.0); Monocyte# 0.44 X10^3/uL; Monocyte% 10.3 % (0-10); NRBC Flagged by Analyzer 0 % (0-5); Neutrophil # 2.59 X10^3/uL (2.7-7.7); Neutrophil % 60.6 % (47-70); Platelet Count 248 K/mm3 (150-450); RBC Distribution Width CV 15.2 % (11.6-14.6); RBC Distribution Width SD 54.6 fl (35.1-43.9); Red Blood Count 3.25 M/mm3 (4.2-5.4); White Blood Count 4.3 K/mm3 (4.4-11.0)
[2024-03-16 06:24] LABS: Anion Gap 4 (5-15); BUN 18 mg/dL (7-18); BUN/Creat Ratio 20.2 RATIO (10-20); Calcium,Total 9.3 mg/dL (8.5-10.1); Chloride 107 mmol/L (98-107); Creatinine, Serum 0.89 mg/dL (0.55-1.02); EST Glomerular Filtration Rate 65 mL/min (>60); Est Glom Filt Rate - Afr Amer 79 mL/min (>60); Estimated Creatinine Clearance 67.82 ml/min; Glucose 102 mg/dL (74-106); Sodium Level 139 mmol/L (136-145)
[2024-03-16] MEDS: Multivitamins,Therapeutic Tablet 1 TABLET PO (09:25)
[2024-03-16] MEDS: Calcium Carbonate 500 MG Tablet PO ×2 (09:25→16:54)
[2024-03-16] MEDS: Multivitamin (Healthy Eyes) Capsule 1 CAP PO (09:26)
[2024-03-16] MEDS: Iron Polysaccharide Complex 150 MG CAPSULE PO (09:26)
[2024-03-16] MEDS: Cyanocobalamin 500 MCG Tablet PO (09:26)
[2024-03-16] MEDS: traMADol 50 MG Tablet PO (09:27)
[2024-03-16] MEDS: Aspirin E.C. 81 MG Tablet PO ×2 (09:29→22:09)
[2024-03-16 11:56] VITALS: PULSE 87; RESP 16; O2SAT 100
[2024-03-16 15:22] VITALS: BP 137/60; PULSE 87; RESP 16; TEMP 36.7; O2SAT 100
[2024-03-16] MEDS: Pravastatin 40 MG Tablet PO (22:09)
[2024-03-17] MEDS: Acetaminophen 500 MG Tablet 1000 MG PO (01:01)
[2024-03-17] MEDS: Aspirin E.C. 81 MG Tablet PO (07:56)
[2024-03-17] MEDS: Iron Polysaccharide Complex 150 MG CAPSULE PO (07:56)
[2024-03-17] MEDS: Calcium Carbonate 500 MG Tablet PO (07:56)
[2024-03-17] MEDS: Cyanocobalamin 500 MCG Tablet PO (07:57)
[2024-03-17] MEDS: Multivitamins,Therapeutic Tablet 1 TABLET PO (07:57)
[2024-03-17] MEDS: Multivitamin (Healthy Eyes) Capsule 1 CAP PO (07:57)
[2024-03-17] MEDS: traMADol 50 MG Tablet PO (08:04)
[2024-03-17 08:07] VITALS: BP 127/65; PULSE 99; RESP 18; TEMP 36.9
--- NOTE | 2024-03-17 09:38 | CASEMGMT ---
Social Work SW conducted BIMS () and PHQ-2 () completed for MDS assessment. Aura Storey MSW [employer]
[2024-03-17 11:13] VITALS: BP 127/65; PULSE 99; RESP 18; TEMP 36.9; O2SAT 98
== END 2024-03-17 10:15 | disposition home or self-care (01) | DRG 561 ==
PROVIDERS: Admitting Provider Family Medicine Geriatric Medicine; Visit Provider Family Medicine Geriatric Medicine
DX: S72.001D Fracture of unspecified part of neck of right femur, subsequent encounter for closed fracture with routine healing (principal); D50.9 Iron deficiency anemia, unspecified; E78.5 Hyperlipidemia, unspecified; H35.30 Unspecified macular degeneration; E53.8 Deficiency of other specified B group vitamins; W01.0XXD Fall on same level from slipping, tripping and stumbling without subsequent striking against object, subsequent encounter; S52.611D Displaced fracture of right ulna styloid process, subsequent encounter for closed fracture with routine healing; Z79.82 Long term (current) use of aspirin; Z79.899 Other long term (current) drug therapy; S52.571D Other intraarticular fracture of lower end of right radius, subsequent encounter for closed fracture with routine healing
CPT/HCPCS: 36415; 73100; 73110; 73502; 80048; 80061; 85014; 85018; 85025; 86850; 86900; 86901; 86920; 97110; 97116; 97162; 97166; 97530; 97535; 97802; A4216; J1940

== ENCOUNTER 2024-03-03 07:27 | Outpatient (CLI) | payer MEDICARE, SELFPAY ==
[2024-03-03] VITALS (7 sets, daily range): BP systolic 122–146; BP diastolic 50–66; PULSE 82–91; RESP 14–16; TEMP 36.7–37.3; O2SAT 95–99; BMI 28.7
[2024-03-03] MEDS: 0.9% NaCl Peripheral Flush Adult/Peds IV ×2 (07:45→12:37)
[2024-03-03] MEDS: 0.9% Normal Saline (500mL Bag) 500 ML 15 ML IV (08:00)
== END 2024-03-03 23:59 | disposition home or self-care (01) ==
PROVIDERS: Referring Provider Family Medicine Geriatric Medicine; Visit Provider Family Medicine Geriatric Medicine
DX: D62 Acute posthemorrhagic anemia (principal)
CPT/HCPCS: 36430; 86850; 86900; 86901; 86920; J7040; P9016; A4216